=== PATIENT | female | born 1995 | race Caucasian/White ===

== ENCOUNTER 2022-03-13 17:25 | Inpatient (IN) ==
[2022-03-13] MEDS ORDERED: Buffered Lidocaine 1% SYRIN 1 ml INTRADERM ONE (18:29)
[2022-03-13] MEDS ORDERED: Lactated Ringers 1000 ml BAG 1,000 ML IV ONE (18:46)
[2022-03-13] MEDS ORDERED: Lactated Ringers 1000 ml BAG 1,000 ML IV SCH (19:00)
[2022-03-13] MEDS ORDERED: Lidocaine 1.5% EPI 1:200,000 30 ML SDV ONE (20:37)
[2022-03-13 21:04] LABS: Urine Appearance Clear; Urine Bilirubin Negative (Negative); Urine Color Yellow; Urine Glucose Negative (Negative); Urine Ketones Negative (Negative); Urine Nitrite Negative (Negative); Urine Protein Negative (Negative); Urine Specific Gravity 1.015 (1.005-1.030); Urine Urobilinogen 0.2 (Negative) (Negative)
[2022-03-13 21:09] LABS: Urine Benzodiazepine Screen None Detected (None Detect); Urine Cannabinoids Screen None Detected (None Detect); Urine Opiates Screen None Detected (None Detect)
[2022-03-13 21:40] LABS: Urine Bacteria 1+ (Absent); Urine Red Blood Cell Trace(0-2/hpf) (Absent); Urine Squamous Epithelial Cell Present (Absent); Urine White Blood Cell Trace(0-5/hpf) (Absent)
[2022-03-13 21:46] LABS: ABS Basophils 0.1 10^3/ul (0-0.2); ABS Eosinophils 0.1 10^3/ul (0-0.6); ABS Lymphocytes 2.3 10^3/ul (1.0-4.8); ABS Neutrophils 8.3 10^3/ul (1.5-7.7); Eosinophil % 1.1 %; Hematocrit 32 % (35-47); Hemoglobin 10.7 g/dL (12.0-16.0); Lymphocyte % 19.2 %; Mean Corpuscular HGB Conc 34 g/dL (31-36); Mean Corpuscular Hemoglobin 30 pg (27-31); Mean Corpuscular Volume 88 fL (80-97); Mean Platelet Volume 10.5 fL (7.4-10.4); Platelet Count 281 10^3/uL (150-450); Red Blood Count 3.59 10^6 /uL (3.70-4.87); Red Cell Distribution Width 12 % (10-15); White Blood Count 11.8 10^3/uL (3.5-10.8)
[2022-03-13] MEDS: Calcium Carb (TUMS) 500 mg CHEW TAB PO PRN (22:34)
[2022-03-13] MEDS ORDERED: OBEPIDURAL (200 ML) 200 ML EPIDURAL ONE (23:38)
[2022-03-14] MEDS: Calcium Carb (TUMS) 500 mg CHEW TAB PO PRN ×2 (04:28→10:07)
[2022-03-14] MEDS ORDERED: Oxytocin in LR 20,000 MILLI.UNIT/1,000 ML BAG IV ONE (09:49)
[2022-03-14] MEDS ORDERED: Witch Hazel PAD JAR TOPICAL PRN (12:16)
[2022-03-14] MEDS ORDERED: Oxytocin in LR 20,000 MILLI.UNIT/1,000 ML BAG IV SCH (12:30)
[2022-03-14] MEDS ORDERED: Lidocaine 1% VIAL 10 MG/ML VIAL ONE (12:41)
[2022-03-14] MEDS: Dibucaine 1% OINT 28.35 GM TUBE PR PRN (12:46)
[2022-03-14] MEDS ORDERED: Lactated Ringers 1000 ml BAG 1,000 ML IV SCH (13:00)
[2022-03-15 09:15] LABS: ABS Eosinophils 0.2 10^3/ul (0-0.6); ABS Lymphocytes 2.1 10^3/ul (1.0-4.8); ABS Monocytes 0.8 10^3/ul (0-0.8); ABS Neutrophils 11.1 10^3/ul (1.5-7.7); Eosinophil % 1.1 %; Hematocrit 31 % (35-47); Hemoglobin 10.3 g/dL (12.0-16.0); Mean Corpuscular HGB Conc 33 g/dL (31-36); Mean Corpuscular Hemoglobin 29 pg (27-31); Mean Corpuscular Volume 89 fL (80-97); Platelet Count 214 10^3/uL (150-450); Red Blood Count 3.51 10^6 /uL (3.70-4.87); Red Cell Distribution Width 12 % (10-15); White Blood Count 14.3 10^3/uL (3.5-10.8)
[2022-03-15] MEDS: Dibucaine 1% OINT 28.35 GM TUBE PR PRN (20:34)
[2022-03-16 08:14] VITALS: BP 133/83
[2022-03-16] MEDS ORDERED: Varicella Virus Vaccine Live 0.5 ML VIAL SUBCUT ONE (09:46)
== END 2022-03-16 11:22 | disposition home or self-care (01) | DRG 560 ==
LOC: MCHOBOUT 17:25 → MCHOB 18:36
PROVIDERS: ADMIT Midwife; ATTEND Midwife